=== PATIENT | female | born 1995 | race Caucasian/White ===

== ENCOUNTER 2017-09-17 02:51 | Emergency (ER) | payer OTHER ==
--- NOTE | 2017-09-17 02:56 | EDPHY ---
H & P Source: Patient - Personal History Tetanus Vaccine Date: unsure - Medical/Surgical History Hx Asthma: No Hx Chronic Respiratory Disease: No Hx Diabetes: No Hx Cardiac Disease: No Hx Renal Disease: No Hx Cirrhosis: No Hx Alcoholism: No Hx HIV/AIDS: No Hx Splenectomy or Spleen Trauma: No Other PMH: unknown blood platelet disorder, anemia, depression, adhd, anxiety, mono - Social History Smoking Status: Never smoked Time Seen by Provider: 09/17/17 02:55 HPI/ROS: HPI CHIEF COMPLAINT: Worsening depression, M1 hold by police HISTORY OF PRESENT ILLNESS: Patient is a 22-year-old female she has a history of major depressive disorder, anxiety she presents emergency room on M1 hold by police for worsening depression. She did 5 years ago have a suicide attempt and required to 72 hr mental health hold at that time in inpatient psychiatric hospitalization. She has, cooperative upon arrival she does admit to worsening depression. She is tearful and anxious. Does not have a specific suicidal plan. Patient reports to me that she has been compliant with her antidepressive medications and anxiety medications. Past Medical History: Major depressive disorder. Anxiety. Past Surgical History: Denies any recent surgery Social History: [employer] student, denies illicit drugs. Alcohol this evening. Family History: Noncontributory ROS REVIEW OF SYSTEMS: A comprehensive 10 point review of systems is otherwise negative aside from elements mentioned in the history of present illness. Exam Constitutional triple, flat affect, triage nursing summary reviewed, vital signs reviewed, awake/alert. Eyes normal conjunctivae and sclera, EOMI, PERRLA. HENT normal inspection, atraumatic, moist mucus membranes, no epistaxis, neck supple/ no meningismus, no raccoon eyes. Respiratory clear to auscultation bilaterally, normal breath sounds, no respiratory distress, no wheezing. Cardiovascular rate normal, regular rhythm, no murmur, no edema, distal pulses normal. Gastrointestinal soft, non-tender, no rebound, no guarding, normal bowel sounds, no distension, no pulsatile mass. Genitourinary no CVA tenderness. Musculoskeletal no midline vertebral tenderness, full range of motion, no calf swelling, no tenderness of extremities, no meningismus, good pulses, neurovascularly intact. Skin pink, warm, & dry, no rash, skin atraumatic. Neurologic awake, alert and oriented x 3, AAOx3, moves all 4 extremities equally, motor intact, sensory intact, CN II-XII intact, normal cerebellar, normal vision, normal speech. Psychiatric tearful, flat affect, anxious Heme/Lymph/Immune no lymphadenopathy. Differential Diagnosis: Includes but is not limited to in a particular order underlying depression, mood disorder, anxiety. Worsening depression. Medical Decision Making: Plan for this patient blood draw for medical clearance. She is on M1 hold by police. She will need mental health evaluation. Re-evaluation: 0638: Patient has been resting comfortably no acute distress. Signed over to Dr. Quiñones at 7 am Shift-change. M1 hold. Worsening depression. Needs mental health evaluation. Patient has positive cocaine. Alcohol level elevated close to 200. Needs to metabolize the alcohol and then mental health evaluation. (Asael Wilcox) Constitutional: Initial Vital Signs Temperature (C) 36.7 C 09/17/17 02:55 Heart Rate 88 09/17/17 02:55 Respiratory Rate 16 09/17/17 02:55 Blood Pressure 116/72 09/17/17 02:55 O2 Sat (%) 97 09/17/17 02:55 O2 Delivery Mode Room Air Allergies/Adverse Reactions: amoxicillin Allergy (Verified 09/17/17 03:06) Penicillins Allergy (Verified 09/17/17 03:06) Home Medications: Medication Instructions Recorded Adderall 10 MG (RX) 12/31/14 Cryselle-28 Tablet 12/31/14 VYVANSE 12/31/14 ALPRAZolam 09/17/17 Prozac 10 MG (*) 09/17/17 Medical Decision Making ED Course/Re-evaluation: I assumed care of this patient at 7:00 a.m.. At that time she was undergoing mental health evaluation. The evaluation was completed and I spoke with the [employer]ending [employer] supervisor. It is felt that her suicidal thoughts were related to alcohol intoxication. She is not currently suicidal. She does have a history of depression and has recently resumed medication. She has a therapist. She is preparing to start her senior year and has a summer job at the [employer]. Her father has been notified about priti's visit and will be coming to [place] today. He is comfortable with her returning home. I feel that she is safe to do so. I have lifted the is 72 hr hold and she will be discharged from the emergency department. She is aware of local resources that are available to her should she have suicidal thoughts or other problems. She takes Adderall and Vyvanse and perhaps this has caused her to have a positive drug screen for cocaine. She states that she has not taken cocaine and that she does not use illicit drugs.. (Keli Quiñones) - Data Points Laboratory Results: Laboratory Results 09/17/17 03:00 09/17/17 03:00 09/17/17 09/17/17 09/17/17 05:30 03:00 03:00 WBC RBC Hgb Hct MCV MCH MCHC RDW Plt Count MPV Neut % (Auto) Lymph % (Auto) Mccreary % (Auto) Eos % (Auto) Baso % (Auto) Nucleat RBC Rel Count Absolute Neuts (auto) Absolute Lymphs (auto) Absolute Monos (auto) Absolute Eos (auto) Absolute Basos (auto) Absolute Nucleated RBC Immature Gran % Immature Gran # Sodium 144 mEq/L mEq/L (135-145) Potassium 4.4 mEq/L mEq/L (3.3-5.0) Chloride 112 mEq/L H mEq/L (97-110) Carbon Dioxide 17 mEq/l L mEq/l (22-31) Anion Gap 15 mEq/L mEq/L (8-16) BUN 9 mg/dL mg/dL (7-23) Creatinine 0.7 mg/dL mg/dL (0.6-1.0) Estimated GFR > 60 Glucose 92 mg/dL mg/dL (70-100) Calcium 8.6 mg/dL mg/dL (8.5-10.4) Beta HCG, Qual NEGATIVE Urine Opiates Screen NEGATIVE (NEGATIVE) Urine Barbiturates NEGATIVE (NEGATIVE) Ur Phencyclidine Scrn NEGATIVE (NEGATIVE) Ur Amphetamine Screen NEGATIVE (NEGATIVE) U Benzodiazepines Scrn NEGATIVE (NEGATIVE) Urine Cocaine Screen NON-NEGATIVE H (NEGATIVE) U Marijuana (THC) Screen NEGATIVE (NEGATIVE) Ethyl Alcohol 195 mg/dL H mg/dL (0-10) 09/17/17 03:00 WBC 6.76 10^3/uL 10^3/uL (3.80-9.50) RBC 4.77 10^6/uL 10^6/uL (4.18-5.33) Hgb 12.2 g/dL L g/dL (12.6-16.3) Hct 38.0 % % (38.0-47.0) MCV 79.7 fL L fL (81.5-99.8) MCH 25.6 pg L pg (27.9-34.1) MCHC 32.1 g/dL L g/dL (32.4-36.7) RDW 16.4 % H % (11.5-15.2) Plt Count 362 10^3/uL 10^3/uL (150-400) MPV 10.8 fL fL (8.7-11.7) Neut % (Auto) 44.0 % % (39.3-74.2) Lymph % (Auto) 43.8 % % (15.0-45.0) Mccreary % (Auto) 6.1 % % (4.5-13.0) Eos % (Auto) 5.3 % % (0.6-7.6) Baso % (Auto) 0.7 % % (0.3-1.7) Nucleat RBC Rel Count 0.0 % % (0.0-0.2) Absolute Neuts (auto) 2.97 10^3/uL 10^3/uL (1.70-6.50) Absolute Lymphs (auto) 2.96 10^3/uL 10^3/uL (1.00-3.00) Absolute Monos (auto) 0.41 10^3/uL 10^3/uL (0.30-0.80) Absolute Eos (auto) 0.36 10^3/uL 10^3/uL (0.03-0.40) Absolute Basos (auto) 0.05 10^3/uL 10^3/uL (0.02-0.10) Absolute Nucleated RBC 0.00 10^3/uL 10^3/uL (0-0.01) Immature Gran % 0.1 % % (0.0-1.1) Immature Gran # 0.01 10^3/uL 10^3/uL (0.00-0.10) Sodium Potassium Chloride Carbon Dioxide Anion Gap BUN Creatinine Estimated GFR Glucose Calcium Beta HCG, Qual Urine Opiates Screen Urine Barbiturates Ur Phencyclidine Scrn Ur Amphetamine Screen U Benzodiazepines Scrn Urine Cocaine Screen U Marijuana (THC) Screen Ethyl Alcohol Medications Given: Discontinued Medications Ibuprofen (Motrin) 600 mg PO EDNOW ONE Stop: 09/17/17 03:19 Last Admin: 09/17/17 03:19 Dose: 600 mg Ondansetron HCl (Zofran Odt) 4 mg PO EDNOW ONE Stop: 09/17/17 03:19 Last Admin: 09/17/17 03:19 Dose: 4 mg Departure - Departure Disposition: Home, Routine, Self-Care Clinical Impression: Depression Qualifiers: Depression Type: major depressive disorder Major depression recurrence: unspecified whether recurrent Active/Remission status: currently active Major depression episode severity: moderate Qualified Code(s): F32.1 - Major depressive disorder, single episode, moderate Alcohol intoxication Qualifiers: Complication of substance-induced condition: uncomplicated Qualified Code(s): F10.920 - Alcohol use, unspecified with intoxication, uncomplicated Condition: Fair Instructions: Depression (ED) Referrals: NONE *PRIMARY CARE P,. [Primary Care Provider] - As per Instructions [facility],. [Clinic] - As per Instructions
[2017-09-17 03:08] LABS: PLATELET COUNT 362 10^3/uL (150-400)
[2017-09-17] MEDS ORDERED: IBUPROFEN 600 MG TAB PO ONE ×2 (03:18)
[2017-09-17] MEDS ORDERED: ONDANSETRON DISINTEGRATING 4 MG TAB PO ONE (03:18)
[2017-09-17] MEDS ORDERED: ONDANSETRON DISINTEGRATING 4 MG TAB ONE (03:18)
[2017-09-17 07:32] VITALS: BP 119/70
== END 2017-09-17 07:41 | disposition home or self-care (01) ==
PROC: GZ11ZZZ Psychological Tests, Personality and Behavioral (ICD-10-PCS; principal; 2017-09-17)
DX: F32.1 Major depressive disorder, single episode, moderate (principal); F10.920 Alcohol use, unspecified with intoxication, uncomplicated
CPT/HCPCS: 80305; G0480

== ENCOUNTER 2018-01-28 19:24 | Emergency (ER) | payer OTHER ==
[2018-01-28] MEDS ORDERED: ACETAMINOPHEN 500 MG TAB PO ONE (19:42)
--- NOTE | 2018-01-28 19:46 | EDPHY ---
General - History Smoking Status: Never smoked Time Seen by Provider: 01/28/18 19:39 Narrative: CHIEF COMPLAINT: Head injury, headache, history of hemophilia HISTORY OF PRESENT ILLNESS: Patient presents by POV with complaints of head injury and headache. She reports striking her head on a cabinet earlier today when standing up quickly from cleaning. She struck the back of her head and did not lose consciousness. She felt a sudden onset of pain and headache there. She contacted her mother and sat down that she was feeling symptomatic from the head injury. She said she rested for 1-2 hours and felt better until she vomited. She has some blurred vision at times. No double vision. No neck pain now or at time of impact. She has no numbness, tingling or weakness. She has no injury elsewhere. 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 She reports no bleeding from any site at this time. She has not had to administer any factor in the past 6 months. No other associated complaints or modifying factors. REVIEW OF SYSTEMS: 10 systems were reviewed and negative with the exception of the elements mentioned in the history of present illness. PCP: [facility]: None PAST MEDICAL HISTORY: Hemophilia, anemia, depression, attention deficit hyperactivity disorder, anxiety, infectious mononucleosis. LMP started 2 days ago. ANTICOAGULATED: No PAST SURGICAL HISTORY: No recent surgical history. SOCIAL HISTORY: Nonsmoker. [employer] student. Originally from [place] FAMILY HISTORY: Noncontributory EXAMINATION: General Appearance: Alert, no distress Head: normocephalic, atraumatic. No Gary sign. No raccoon eyes. no depression or deformity. There is an occipital scalp hematoma that is 3 cm x 3 cm. No laceration or puncture Eyes: Pupils equal and round, no conjunctival pallor or injection EOM symmetric and painless. ENT, Mouth: Mucous membranes moist Neck: Midline trachea. Normal inspection, supple, non-tender. No crepitus or deformity. Painless range of motion all planes. Respiratory: No retractions or distress. Cardiovascular: Regular rate and rhythm Back: non-tender, no bony abnormalities Neurological: GCS 15. A&O, nonfocal, normal gait. No pronator drift. Normal [id number]. Strength is 5/5 in all 4 extremities Skin: Warm and dry, no rash. No laceration or puncture. No petechiae. No purpura. Extremities: Nontender, no pedal edema Psychiatric: Mood and affect normal DIFFERENTIAL DIAGNOSES: Including but not limited to hematoma, concussion, intracranial hemorrhage, fracture, MDM: 7:40 p.m. Closed head injury with blunt trauma to the occipital scalp at approximately 4: 30 p.m. Today. She does have a superficial hematoma. She has headache and 1 episode of vomiting. She does not have any Gary sign or raccoon eyes. She has no depression of the scalp. She does report a history of hemophilia, thus I have ordered CT scan of the head. She is preferential to this. There is no neck pain or tenderness. She is fully neuro intact. She is conversing appropriately in no acute distress. Vital signs are within normal limits. HCG not ordered as she is currently menstruating and declines testing. 8:20 p.m. Notified by radiologist Dr. Das. CT scan of the unremarkable for any acute findings. Patient re-evaluated. She has decreased headache after the Tylenol. I discussed the negative CT scan findings. She has relief. We discussed head injury precautions. We discussed following up with [facility] tomorrow for repeat evaluation. We discussed ED precautions for return of vomiting, visual disturbance, neck pain or stiffness, fever, bruising around the eyes or behind the ears. Given her history of hemophilia she should be monitored for the next 6 hr. She is comfortable this plan. She has a roommate. She is discharged home stable condition. SUPERVISION: This patient was independently evaluated without direct involvement of or examination by the attending physician. CONSULTATION: None (Saul Mars) Discussion: The patient was evaluated and managed by the Physician Machine Gun Mechanic. My co- signature indicates that I have reviewed this chart and I agree with the findings and plan of care as documented. I am the secondary supervising physician. (Mary Pedersen) - Objective Vital Signs: Initial Vital Signs Temperature (C) 36.6 C 01/28/18 19:31 Heart Rate 106 H 01/28/18 19:31 Respiratory Rate 16 01/28/18 19:31 Blood Pressure 127/83 H 01/28/18 19:31 O2 Sat (%) 95 01/28/18 19:31 O2 Delivery Mode Room Air Allergies/Adverse Reactions: amoxicillin Allergy (Verified 09/17/17 03:06) Penicillins Allergy (Verified 09/17/17 03:06) Home Medications: Medication Instructions Recorded Adderall 10 MG (RX) 12/31/14 Cryselle-28 Tablet 12/31/14 VYVANSE 12/31/14 ALPRAZolam 09/17/17 Iron 01/28/18 buPROPion 01/28/18 Medications Given: Discontinued Medications Acetaminophen (Tylenol) 1,000 mg PO EDNOW ONE Stop: 01/28/18 19:43 Last Admin: 01/28/18 19:46 Dose: 1,000 mg Departure - Departure Disposition: Home, Routine, Self-Care Clinical Impression: Closed head injury, History of hemophilia Condition: Good Instructions: Concussion (ED), Head Injury (ED) Additional Instructions: 1. Head injury precautions as discussed 2. Contact [facility] at tomorrow morning to be seen on Monday 3. Return to emergency department for worsening headache, neck pain or stiffness , fever, visual disturbance, vomiting Referrals: [facility],. [Clinic] - As per Instructions Stand Alone Forms: School Excuse
[2018-01-28 20:37] VITALS: BP 125/86
== END 2018-01-28 20:37 | disposition home or self-care (01) ==
DX: S09.90XA Unspecified injury of head, initial encounter (principal); R51 Headache; W22.8XXA Striking against or struck by other objects, initial encounter; Y93.E5 Activity, floor mopping and cleaning; Y92.9 Unspecified place or not applicable; Y99.9 Unspecified external cause status